=== PATIENT | male | born 1950 | race Caucasian/White ===

== ENCOUNTER 2016-07-15 11:37 | Observation (INO) | payer OTHER ==
[2016-07-15] VITALS (11 sets, daily range): BP systolic 126–192; BP diastolic 58–90; PULSE 64–75; RESP 18–21; TEMP 97.9–98.4; O2SAT 98–100
[~2016-07-15] VITALS: Ht 167.6 cm; Wt 68.0 kg
[2016-07-15 12:40] LABS: AUTOMATED NEUTROPHIL # 6.9 TH/MM3 (1.8-7.7); BASOPHIL % 0.3 % (0.0-2.0); EOSINOPHIL % 0.2 % (0.0-4.0); HEMATOCRIT 39.4 % (39.0-51.0); HEMO FLAGS DIFF FINAL; LYMPH % 12.9 % (9.0-44.0); LYMPHOCYTE # 1.1 TH/MM3 (1.0-4.8); MEAN CELL VOLUME 92.3 FL (80.0-100.0); MEAN CORPUSCULAR HEMOGLOBIN 31.6 PG (27.0-34.0); MEAN CORPUSCULAR HGB CONC 34.2 % (32.0-36.0); MONO % 7.3 % (0.0-8.0); NEUT % 79.3 % (16.0-70.0); PLATELET COUNT 207 TH/MM3 (150-450); RED BLOOD COUNT 4.26 MIL/MM3 (4.50-5.90); RED CELL DISTRIBUTION WIDTH 13.8 % (11.6-17.2); WHITE BLOOD COUNT 8.7 TH/MM3 (4.0-11.0)
--- NOTE | 2016-07-15 12:46 | RADRPT ---
EXAM DATE/TIME: 07/15/2016 12:31 [facility] COMPARISON: No previous studies available for comparison. INDICATIONS : Chest Pain MEDICAL HISTORY : None. SURGICAL HISTORY : None. ENCOUNTER: Initial ACUITY: 1 day PAIN SCORE: 0/10 LOCATION: Bilateral chest FINDINGS: A single view of the chest demonstrates the lungs to be symmetrically aerated without evidence of mas s, infiltrate or effusion. The cardiomediastinal contours are unremarkable. Osseous structures are intact. CONCLUSION: No acute disease. Mohan Duong MD on July 15, 2016 at 12:44 Board Certified Radiologist. This report was verified electronically.
[2016-07-15] MEDS ORDERED: BENA20TA PO (12:47)
[2016-07-15] MEDS ORDERED: PRAV20TA2 PO (12:47)
[2016-07-15] MEDS ORDERED: HYDR25TA5 PO (12:47)
[2016-07-15 13:07] LABS: ANION GAP 10 MEQ/L (5-15)
[2016-07-15 13:14] LABS: BICARBONATE 25.6 MEQ/L (21.0-32.0); BLOOD UREA NITROGEN 35 MG/DL (7-18); CHLORIDE 99 MEQ/L (98-107); CREATINE KINASE 99 U/L (39-308); GLOMERULAR FILTRATION RATE 53 ML/MIN (>89); MAGNESIUM 1.8 MG/DL (1.5-2.5); POTASSIUM 4.2 MEQ/L (3.5-5.1); SODIUM (NA) 135 MEQ/L (136-145)
--- NOTE | 2016-07-15 13:37 | PD ---
HPI Chief Complaint: Syncope/Near-Syncope Time Seen by Provider: 12:01 Travel History International Travel<30 days: No Contact w/Intl Traveler<30days: No Traveled to known affect area: No History of Present Illness HPI Patient is a 66-year-old male who presents the emergency department after syncopal episode. Patient states that he has a history of a right bundle branch block and previous stent to the left circumflex over a decade ago. Patient has been well in the interim and has not had any provocative testing. Patient was sitting in a parked car running errands when he became cool, pale, diaphoretic, nauseous and had a syncopal episode. Patient was by himself, unwitnessed, unclear how long this lasted. When patient awoke he still felt nauseous and had another wave but no syncope. Patient drove himself home, was unable to get out of the car and EMS was called responding to patient. Stable in route. Patient denies having any chest pain, shortness of breath or recollection of palpitations. He has never had any history of syncopal episodes. [facility] Past Medical History Heart Rhythm Problems: Yes (RBBB) Hypertension: Yes Myocardial Infarction: Yes (one) ?: Not Past Surgical History Cardiac Surgery: Yes Coronary Stent: Yes (one-circumflex) Social History Alcohol Use: Yes (occassional) Tobacco Use: No Substance Use: No Allergies-Medications (Allergen,Severity, Reaction): Coded Allergies: No Known Allergies (Unverified , 07/15/16) Reported Meds & Prescriptions Reported Meds & Active Scripts Active Reported Pravastatin 20 Mg Tab 20 Mg PO DAILY Hydrochlorothiazide 25 Mg Tab 20 Mg PO DAILY Benazepril (Benazepril HCl) 20 Mg Tab 20 Mg PO DAILY Review of Systems Except as stated in HPI: all other systems reviewed are Neg Physical Exam Narrative GENERAL: Well-appearing male in no acute distress SKIN: Warm and dry. HEAD: Normocephalic. EYES: No scleral icterus. No injection or drainage. ENT: Mucous membranes pink and moist. NECK: Supple CARDIOVASCULAR: Regular rate and rhythm. No murmur appreciated. RESPIRATORY: No accessory muscle use. Clear to auscultation. Breath sounds equal bilaterally. GASTROINTESTINAL: Abdomen soft, non-tender, nondistended. Hepatic and splenic margins not palpable. MUSCULOSKELETAL: No obvious deformities. No edema. NEUROLOGICAL: Awake and alert. Motor grossly within normal limits. Normal speech. PSYCHIATRIC: Appropriate mood and affect; insight and judgment normal. Data Data Last Documented VS Vital Signs Date Time Temp Pulse Resp B/P Pulse Ox O2 Delivery O2 Flow Rate FiO2 07/15/16 13:30 64 18 166/79 99 Room Air 07/15/16 12:13 97.9 Orders Electrocardiogram (07/15/16 ) Basic Metabolic Panel (Bmp) (07/15/16 12:09) Ckmb (Isoenzyme) Profile (07/15/16 12:09) Complete Blood Count With Diff (07/15/16 12:09) Magnesium (Mg) (07/15/16 12:09) Prothrombin Time / Inr (Pt) (07/15/16 12:09) Act Partial Throm Time (Ptt) (07/15/16 12:09) Troponin I (07/15/16 12:09) Chest, Single Ap (07/15/16 12:09) Ecg Monitoring (07/15/16 12:09) Bilateral Bp Monitoring (07/15/16 12:09) Iv Access Insert/Monitor (07/15/16 12:09) Oximetry (07/15/16 12:09) Electrocardiogram (07/15/16 12:09) Labs Laboratory Tests Test 07/15/16 12:15 White Blood Count 8.7 TH/MM3 Red Blood Count 4.26 MIL/MM3 Hemoglobin 13.5 GM/DL Hematocrit 39.4 % Mean Corpuscular Volume 92.3 FL Mean Corpuscular Hemoglobin 31.6 PG Mean Corpuscular Hemoglobin 34.2 % Concent Red Cell Distribution Width 13.8 % Platelet Count 207 TH/MM3 Mean Platelet Volume 8.4 FL Neutrophils (%) (Auto) 79.3 % Lymphocytes (%) (Auto) 12.9 % Monocytes (%) (Auto) 7.3 % Eosinophils (%) (Auto) 0.2 % Basophils (%) (Auto) 0.3 % Neutrophils # (Auto) 6.9 TH/MM3 Lymphocytes # (Auto) 1.1 TH/MM3 Monocytes # (Auto) 0.6 TH/MM3 Eosinophils # (Auto) 0.0 TH/MM3 Basophils # (Auto) 0.0 TH/MM3 CBC Comment DIFF FINAL Differential Comment Sodium Level 135 MEQ/L Potassium Level 4.2 MEQ/L Chloride Level 99 MEQ/L Carbon Dioxide Level 25.6 MEQ/L Anion Gap 10 MEQ/L Blood Urea Nitrogen 35 MG/DL Creatinine 1.35 MG/DL Estimat Glomerular Filtration 53 ML/MIN Rate Random Glucose 132 MG/DL Calcium Level 9.6 MG/DL Magnesium Level 1.8 MG/DL Total Creatine Kinase 99 U/L Troponin I LESS THAN 0.02 NG/ML MDM Medical Decision Making Medical Screen Exam Complete: Yes Emergency Medical Condition: Yes Medical Record Reviewed: Yes Differential Diagnosis 66-year-old male with history of right bundle branch block, previous stent to the left circumflex over a decade ago here with syncopal episode. Differential includes arrhythmia, electrolyte abnormality, ACS, symptomatic anemia, vasovagal. Patient does not have any risk factors or recent travel to suggest PE. Narrative Course Patient placed on monitor, IV established and blood obtained. A twelve-lead EKG shows sinus rhythm with incomplete right bundle branch block, interventricular conduction delay. No acute abnormalities. An EKG was repeated in approximately 15 minutes without any interval changes. Patient is symptom-free at this time. He, BMP, magnesium, CK-MB, troponin, coags obtained and notable only for BUN 35, creatinine 1.35. I do not have baseline renal function on file with which to compare. Given patient's age she will be admitted for further syncope workup, telemetry. Attempt to get records and previous EKG from [facility], but they're electronic medical record does not go back over a decade. Diagnosis Primary Impression: Syncope Qualified Code: R55 - Syncope, unspecified syncope type Admitting Information Admitting Physician Requests: Angie Retana MD Jul 15, 2016 13:37
[2016-07-15 14:05] LABS: APTT (PATIENT) 19.6 SEC (24.3-30.1); PROTHROMBIN TIME - PATIENT 10.7 SEC (9.8-11.6)
[2016-07-15] MEDS ORDERED: SODIUM CHLORIDE 0.9% FLUSH 5 ML FLUSH IV PRN (17:45)
[2016-07-15] MEDS: SODIUM CHLOR 0.9% 1000 ML INJ 1,000 ML IV SCH ×2 (18:00→22:51)
--- NOTE | 2016-07-15 18:39 | HHI.HP ---
[facility] Service [facility] Primary Care Physician Volodymyr Fragoso M.D. Admission Diagnosis syncope Diagnoses: Chief Complaint: Syncopal episode Travel History International Travel<30 Days: No Contact w/Intl Traveler <30 Da: No Traveled to Known Affected Are: No History of Present Illness Patient is a 66-year-old male with known history of hypertension, CAD status post SC in 2002 with stenting of the left circumflex, who this afternoon while patient was pulling into a parking lot suddenly experienced diaphoresis, nausea followed by a syncopal episode. 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 He was able to drive himself home and when the saw him he was ashen looking and shaky. EMS was called and patient was brought in. Patient states that he felt similar to this when he had the acute coronary attack in 2002 but this time he did not experience any chest pain at all. Patient states very healthy lifestyle no recent fever or chest pain shortness of breath. Denies any palpitations, denies any orthopnea. Denies any leg swelling. Denies any recent travel. Denies any previous episodes of syncope or near syncopal episode. Patient admitted for further evaluation and management. Review of Systems Constitutional: DENIES: Fever, Weight loss, Chills, Change in appetite Eyes: DENIES: Blurred vision, Double Vision Ears, nose, mouth, throat: DENIES: Tinnitus, Ear Pain, Epistaxis, Odynophagia Respiratory: DENIES: Cough, Hemoptysis, Sputum production, Shortness of breath Cardiovascular: DENIES: Chest pain, Palpitations, Dyspnea on Exertion, Lower Extremity Edema, Orthopnea Gastrointestinal: DENIES: Black stools, Bloody stools, Difficulty Swallowing, Anorexia Genitourinary: DENIES: Urgency, Hematuria, Penile Discharge Musculoskeletal: DENIES: Joint pain, Stiffness Integumentary: DENIES: Pruritus Hematologic/lymphatic: DENIES: Bruising Immunologic/allergic: DENIES: Urticaria Neurologic: DENIES: Headache, Speech Problems, Tremor Psychiatric: DENIES: Suicidal Ideation, Homicidal Ideation Past Family Social History Past Medical History Hypertension Coronary artery disease status post SC in 2003 status post stent of the left circumflex in [facility] Past Surgical History None Reported Medications Pravastatin 20 mg at bedtime Hydrochlorothiazide 25 mg daily Been as appropriate 20 mg daily Patient takes 2-3 daily every morning for his right ankle ruptured tendons. Allergies: Coded Allergies: No Known Allergies (Unverified , 07/15/16) Family History Positive history of heart disease Social History Nonsmoker Daily wine or cocktail in the evening Denies any substance polysubstance abuse works as a [employer] Physical Exam Vital Signs Vital Signs Date Time Temp Pulse Resp B/P Pulse Ox O2 Delivery O2 Flow Rate FiO2 07/15/16 16:56 67 19 146/74 99 07/15/16 15:15 78 18 160/58 99 07/15/16 14:08 66 20 161/89 71 162/74 07/15/16 14:07 75 20 153/79 100 Room Air 07/15/16 13:30 64 18 166/79 99 Room Air 07/15/16 12:49 64 20 177/81 98 Room Air 07/15/16 12:18 65 18 192/90 100 Room Air 185/86 07/15/16 12:13 97.9 68 18 185/87 100 Room Air 07/15/16 12:00 68 20 98 Room Air 07/15/16 12:00 97.9 67 18 183/78 100 Room Air 07/15/16 11:45 97.9 66 20 183/87 100 Physical Exam GENERAL: This is a well-nourished, well-developed patient, in no apparent distress. SKIN: Some skin lesions/ rashes patient followed by a formulator compounder plan for biopsy HEAD: Atraumatic. Normocephalic. No temporal or scalp tenderness. EYES: Pupils equal round and reactive. Extraocular motions intact. No scleral icterus. No injection or drainage. ENT: Nose without bleeding, Throat without erythema, tonsillar hypertrophy or exudate. Uvula midline. Airway patent. NECK: Trachea midline. No JVD or lymphadenopathy. Supple, nontender, no meningeal signs. No carotid bruit CARDIOVASCULAR: Regular rate and rhythm without murmurs, gallops, or rubs. RESPIRATORY: Clear to auscultation. Breath sounds equal bilaterally. No wheezes , rales, or rhonchi. GASTROINTESTINAL: Abdomen soft, non-tender, nondistended. . No guarding. MUSCULOSKELETAL: Extremities without clubbing, cyanosis, or edema. No joint tenderness, effusion, or edema noted. No calf tenderness. Negative Homans sign bilaterally. NEUROLOGICAL: Awake and alert. Cranial nerves II through XII intact. Motor and sensory grossly within normal limits. Five out of 5 muscle strength in all muscle groups. Normal speech. Laboratory Laboratory Tests Test 07/15/16 07/15/16 12:15 13:20 White Blood Count 8.7 Red Blood Count 4.26 Hemoglobin 13.5 Hematocrit 39.4 Mean Corpuscular Volume 92.3 Mean Corpuscular Hemoglobin 31.6 Mean Corpuscular Hemoglobin 34.2 Concent Red Cell Distribution Width 13.8 Platelet Count 207 Mean Platelet Volume 8.4 Neutrophils (%) (Auto) 79.3 Lymphocytes (%) (Auto) 12.9 Monocytes (%) (Auto) 7.3 Eosinophils (%) (Auto) 0.2 Basophils (%) (Auto) 0.3 Neutrophils # (Auto) 6.9 Lymphocytes # (Auto) 1.1 Monocytes # (Auto) 0.6 Eosinophils # (Auto) 0.0 Basophils # (Auto) 0.0 CBC Comment DIFF FINAL Differential Comment Sodium Level 135 Potassium Level 4.2 Chloride Level 99 Carbon Dioxide Level 25.6 Anion Gap 10 Blood Urea Nitrogen 35 Creatinine 1.35 Estimat Glomerular Filtration 53 Rate Random Glucose 132 Calcium Level 9.6 Magnesium Level 1.8 Total Creatine Kinase 99 Troponin I LESS THAN 0.02 Prothrombin Time 10.7 Prothromb Time International 1.0 Ratio Activated Partial 19.6 Thromboplast Time Result Diagram: 07/15/16 1215 07/15/16 1215 Imaging Last Impressions Chest X-Ray 07/15/16 1209 Signed Impressions: Service Date/Time: Friday, July 15, 2016 12:31 - CONCLUSION: No acute disease. Mohan Duong MD Assessment and Plan Assessment and Plan Patient is a 66-year-old male with known history of CAD presenting with Syncopal episode- questionable vasovagal. EKG with ? Brugada pattern History of CAD status post stent of the left circumflex 2002 History of Hypertension- SBP elevated on initial presentation Get carotid ultrasound, echo, Holter monitoring. Place patient on telemetry. Orthostatics done - negative Check troponins.another set now and in am 12-lead EKG shows sinus rhythm with right bundle branch block with ? Brugada pattern. check EEG Unclear why patient is not on aspirin. Continue on benazepril 20 mg daily Continue pravastatin 20 mg at bedtime hydrochlorothiazide 25 mg by mouth daily Cardiology consult. ? need for EPS. Vasotec IV prn for elevated BPs Acute kidney insufficiency. Patient denies any diarrhea or GI symptoms nausea vomiting. We'll start patient on gentle hydration Discussed with patient and at bedside. Lovenox for DVT prophylaxis ( no history of bleeding tendencies) Jef Arriaga MD Jul 15, 2016 18:39
[2016-07-15] MEDS ORDERED: ENALAPRILAT 1.25 MG/ML VIAL IV PUSH PRN (19:00)
[2016-07-15 19:21] LABS: BICARBONATE 29.3 MEQ/L (21.0-32.0); INDIRECT BILIRUBIN 0.9 MG/DL (0.0-0.8); POTASSIUM 4.2 MEQ/L (3.5-5.1); TOTAL BILIRUBIN ADULT 1.1 MG/DL (0.2-1.0)
[2016-07-15] MEDS: SODIUM CHLORIDE 0.9% FLUSH 5 ML FLUSH IV SCH (21:00)
--- NOTE | 2016-07-15 22:13 | RADRPT ---
EXAM DATE/TIME: 07/15/2016 21:13 [facility] COMPARISON: No previous studies available for comparison. INDICATIONS : Syncope. MEDICAL HISTORY : Hypertension. Myocardial infarction. SURGICAL HISTORY : Coronary stent. ENCOUNTER: Initial ACUITY: 1 day PAIN SCORE: 0/10 LOCATION: Bilateral neck PEAK SYSTOLIC VELOCITIES (cm/sec): ICA/CCA RATIO: Right: 0.8 Left: 0.8 ICA: Right: 127 Left: 100 CCA: Right: 94 Left: 118 ECA: Right: 133 Left: 125 VERTEBRAL: Right: 39 antegrade Left: 57 antegrade Elevated flow velocities and ICA/CCA ratios have been found to correlate with increased degrees of vessel stenosis, calculated as percentage of diameter relative to a normal segment of distal ICA/CCA FINDINGS: RIGHT CAROTID: Mild atherosclerotic plaquing at the bifurcation. No significant stenosis is visualized. The wavefor ms are within normal limits. LEFT CAROTID: Mild atherosclerotic plaquing at the bifurcation. No significant stenosis is visualized. The wavefor ms are within normal limits. VERTEBRAL ARTERIES: Antegrade flow is seen in both vertebral arteries. MISCELLANEOUS: None. CONCLUSION: Mild atherosclerotic plaquing at both carotid bifurcations. No focal high-grade or hemodynamically si gnificant stenosis. Balta Hernandez MD on July 15, 2016 at 22:11 Board Certified Radiologist. This report was verified electronically.
[2016-07-15] MEDS: ENOXAPARIN SODIUM 30 MG/0.3 ML SYRINGE SQ SCH (22:52)
[2016-07-16] VITALS (9 sets, daily range): BP systolic 128–166; BP diastolic 59–91; PULSE 57–78; RESP 18–20; TEMP 98–98.8; O2SAT 97–98
[2016-07-16 05:49] LABS: AMPHETAMINE, URINE NEG (NEG); BARBITURATES, URINE NEG (NEG); COCAINE, URINE NEG (NEG)
[2016-07-16 07:44] LABS: BICARBONATE 26.7 MEQ/L (21.0-32.0); HDL CHOLESTEROL 80.3 MG/DL (40.0-60.0); POTASSIUM 4.3 MEQ/L (3.5-5.1)
--- NOTE | 2016-07-16 08:26 | HHI.PR ---
Subjective Remarks overnight - sinus on telemetry no complains patient took his own home meds without telling the nurse Objective Vitals Vital Signs Date Time Temp Pulse Resp B/P Pulse Ox O2 Delivery O2 Flow Rate FiO2 07/16/16 07:50 98.3 67 20 155/74 97 156/80 166/84 07/16/16 04:40 98.8 78 18 142/78 98 152/88 157/91 07/16/16 02:01 57 07/16/16 01:23 98.7 68 18 129/59 98 07/15/16 20:31 98.4 73 21 126/64 98 07/15/16 16:56 67 19 146/74 99 07/15/16 15:15 78 18 160/58 99 07/15/16 14:08 66 20 161/89 71 162/74 07/15/16 14:07 75 20 153/79 100 Room Air 07/15/16 13:30 64 18 166/79 99 Room Air 07/15/16 12:49 64 20 177/81 98 Room Air 07/15/16 12:18 65 18 192/90 100 Room Air 185/86 07/15/16 12:13 97.9 68 18 185/87 100 Room Air 07/15/16 12:00 68 20 98 Room Air 07/15/16 12:00 97.9 67 18 183/78 100 Room Air 07/15/16 11:45 97.9 66 20 183/87 100 Result Diagram: 07/15/16 1215 07/16/16 0606 Imaging Last Impressions Chest X-Ray 07/15/16 1209 Signed Impressions: Service Date/Time: Friday, July 15, 2016 12:31 - CONCLUSION: No acute disease. Mohan Duong MD Carotid Artery Ultrasound 07/15/16 0000 Signed Impressions: Service Date/Time: Friday, July 15, 2016 21:13 - CONCLUSION: Mild atherosclerotic plaquing at both carotid bifurcations. No focal high-grade or hemodynamically significant stenosis. Balta Hernandez MD Objective Remarks awake and alert Oriented x 3 ,NAD, speech clear anicteric no bruit lungs clear regula rhyhtm abdomen soft, nontender extremities no edema neurologi exam- unremarkable A/P Assessment and Plan Patient is a 66-year-old male with known history of CAD presenting with Syncopal episode- questionable vasovagal. EKG with ? Brugada pattern History of CAD status post stent of the left circumflex 2002 History of Hypertension- work up in progress - looks well neurologically Get carotid ultrasound, echo, Holter monitoring. telemetry- in SR . Orthostatics done - negative troponins negative check EEG Unclear why patient is not on aspirin. Continue on benazepril 20 mg daily Continue pravastatin 20 mg at bedtime hydrochlorothiazide 25 mg by mouth daily- hold with mild RI Cardiology consult. ? need for EP study Vasotec IV prn for elevated BPs ADD Calcium channel tiff- amlodipine- 2.5 mg po daily- HOLD- patient took his home meds on his own without informing nurses Acute kidney insufficiency. renal functions improved gentle hydration DC HCTZ- patient took home meds on his own Discussed with patient and at bedside. Lovenox for DVT prophylaxis ( no history of bleeding tendencies) Jef Arriaga MD Jul 16, 2016 08:26
[2016-07-16] MEDS ORDERED: PILL SPLITTER OTHER PRN (08:45)
[2016-07-16] MEDS: SODIUM CHLORIDE 0.9% FLUSH 5 ML FLUSH IV SCH ×2 (09:00→20:29)
[2016-07-16] MEDS: PRAVASTATIN SOD 20 MG TAB PO SCH (09:00)
[2016-07-16] MEDS ORDERED: amLODIPine BESYLATE 5 MG TAB PO SCH (09:00)
[2016-07-16] MEDS: LISINOPRIL 20 MG TAB PO SCH (09:00)
[2016-07-16] MEDS ORDERED: HYDROCHLOROTHIAZIDE 25 MG TAB PO SCH ×2 (09:00)
--- NOTE | 2016-07-16 17:58 | EC ---
Study Study Date:07/16/2016 STUDY CONCLUSIONS SUMMARY - Left ventricle: The cavity size was normal. Wall thickness was normal. Systolic function was normal. The estimated ejection fraction was 65%. Wall motion was normal; there were no regional wall motion abnormalities. - Mitral valve: Mildly calcified annulus. If LV function is below 40, please consider prescribing an ACEI or ARB or document rationale for non-use. PROCEDURE DATA STUDY STATUS: Elective. Procedure: Transthoracic echocardiography. Image quality was good. Scanning was performed from the parasternal, apical, and subcostal acoustic windows. Study completion: The patient tolerated the procedure well. Transthoracic echocardiography. M-mode, complete 2D, complete spectral Doppler, and color Doppler. Height: Height: 66in. Weight: Weight: 148.7lb. Body mass index: BMI: 24kg/m^2. Body surface area: BSA: 1.76m^2. Patient status: Inpatient. CARDIAC ANATOMY LEFT VENTRICLE: The cavity size was normal. Wall thickness was normal. Systolic function was normal. The estimated ejection fraction was 65%. Wall motion was normal; there were no regional wall motion abnormalities. AORTIC VALVE: Trileaflet; mildly thickened leaflets. Doppler: Transvalvular velocity was within the normal range. There was no stenosis. No regurgitation. Valve area: 2.2cm^2(VTI). Indexed valve area: 1.25cm^2/m^2 (VTI). Valve area: 2.03cm^2 (Vmax). Indexed valve area: 1.15cm^2/m^2 (Vmax). Mean gradient: 7mm Hg (S). Peak gradient: 11mm Hg (S). AORTA: Aortic root: The aortic root was normal in size. MITRAL VALVE: Mildly calcified annulus. Doppler: Transvalvular velocity was within the normal range. There was no evidence for stenosis. Trace regurgitation. Peak gradient: 4mm Hg (D). LEFT ATRIUM: The atrium was normal in size. RIGHT VENTRICLE: The cavity size was normal. Wall thickness was normal. PULMONIC VALVE: Doppler: Transvalvular velocity was within the normal range. There was no evidence for stenosis. No regurgitation. TRICUSPID VALVE: Structurally normal valve. Doppler: Transvalvular velocity was within the normal range. Trace regurgitation. PULMONARY ARTERY: The main pulmonary artery was normal-sized. Systolic pressure was within the normal range. RIGHT ATRIUM: The atrium was normal in size. PERICARDIUM: There was no pericardial effusion. SYSTEMIC VEINS: Inferior vena cava: The vessel was normal in size. Patient weight: 148.7lb _Ejection fraction:_ 65-75% _Fractional shortening:_ 32% up to 5Kg 5-11.5Kg 11.6-22.9Kg 23-45Kg 45-57Kg Aortic Root 7-13 <17 13-22 17-27 17-27 LA diam 6-13 <23 24-38 33-47 37-40 RVID 10-17 7-15 7-15 7-18 8-17 LVIDd 12-22 <32 24-38 33-47 37-40 LVPW 2-4 3-6 5-7 6-8 7-8 IVS 2-4 3-6 5-7 6-8 7-8 BASIC MEASUREMENTS ADULT NORMAL Left ventricle LV internal dimension, ED, chordal 48 mm 43-52 level, PLAX LV internal dimension, ES, chordal 33.4 mm 23-38 level, PLAX Fractional shortening, chordal level, 30 % >29 PLAX LV posterior wall thickness, ED 10.5 mm IVS/LVPW ratio, ED 1.09 <1.3 Ventricular septum Septal thickness, ED 11.4 mm Aortic valve Leaflet separation *13 mm 15-26 Aorta Root diameter, ED 33 mm Left atrium Anterior-posterior dimension 36 mm Anterior-posterior dimension index 2.05 cm/m^2 <2.2 BASIC MEASUREMENTS ADULT NORMAL Aortic valve Leaflet separation *13 mm 15-26 DOPPLER MEASUREMENTS ADULT NORMAL Aortic valve Peak velocity, S 169 cm/s Mean velocity, S 124 cm/s VTI, S 31.7 cm Mean gradient, S 7 mm Hg Peak gradient, S 11 mm Hg Valve area, VTI 2.2 cm^2 Valve area index, VTI 1.25 cm^2/m^2 Valve area, Vmax 2.03 cm^2 Valve area index, Vmax 1.15 cm^2/m^2 Mitral valve Peak E-wave velocity 99.8 cm/s Peak A-wave velocity 117 cm/s Deceleration time 204 ms 150-230 Peak gradient, D 4 mm Hg Peak E/A ratio 0.9 Tricuspid valve Regurgitant peak velocity 200 cm/s Peak RV-RA gradient, S 16 mm Hg Maximal regurgitant velocity 200 cm/s Pulmonic valve Peak velocity, S 102 cm/s LEGEND: Mean values are shown as u=mean value. Asterisk (*) wynn values outside specified normal range. Amended Margarito Figueroa [id number]
--- NOTE | 2016-07-16 20:09 | EKG ---
Date Performed: 07/15/2016 Time Performed: 18:24:55 PTAGE: 66 years EKG: Sinus rhythm INTRAVENTRICULAR CONDUCTION DELAY OLD LATERAL MYOCARDIAL INFARCTION LEFT AXIS ABNORMAL ECG PREVIOUS TRACING : 07/15/2016 12.12 Compared to prior tracing no significant change DOCTOR: Margarito Figueroa Interpretating Date/Time 07/16/2016 20:07:51
--- NOTE | 2016-07-16 20:26 | EKG ---
Date Performed: 07/15/2016 Time Performed: 12:12:26 PTAGE: 66 years EKG: Sinus rhythm WITH OCCASIONAL VENTRICULAR PREMATURE COMPLEXES INTRAVENTRICULAR CONDUCTION DELAY LATERAL MYOCARDIAL INFARCTION ABNORMAL ECG Compared to prior tracing no significant change DOCTOR: Margarito Figueroa Interpretating Date/Time 07/16/2016 20:25:14
--- NOTE | 2016-07-16 20:29 | EKG ---
Date Performed: 07/15/2016 Time Performed: 11:54:41 PTAGE: 66 years EKG: Sinus rhythm WITH OCCASIONAL VENTRICULAR PREMATURE COMPLEXES MARKED LEFT AXIS DEVIATION INTRAVENTRICULAR CONDUCTI ON DELAY LATERAL MYOCARDIAL INFARCTION ABNORMAL ECG NO PREVIOUS TRACING DOCTOR: Margarito Figueroa Interpretating Date/Time 07/16/2016 20:27:43
[2016-07-16] MEDS: ENOXAPARIN SODIUM 30 MG/0.3 ML SYRINGE SQ SCH (20:30)
--- NOTE | 2016-07-16 21:26 | MB ---
cc: GUIDO COYNE DO DATE OF CONSULTATION: 07/16/2016 REASON FOR CONSULTATION: Syncope. HISTORY OF PRESENT ILLNESS Yuniel Arenas is a pleasant 66 year-old male who originally presented to [facility] on July 15, 2016, due to a syncopal episode. He was driving to the liquor store and pulled into the parking lot and stopped his car. He leaned down to get something on the ground and when he came back up he felt a nauseousness come over him. At that time he ended up syncopizing. He woke up and he was slightly diaphoretic and so he came home. On arrival his told him that he looked pale and shaky, and so EMS was called. The patient was unsure how long he was out but his told him that he was only gone for a short period of time. When the nauseousness came on he did get slightly groggy but denies chest pain, shortness of breath or palpitations at that time. He has been feeling relatively well lately and the only thing affecting him is stressors within his including marital issues. He has had two other episodes of syncope over the past four years. One episode he was driving around with his cat and he was worried about getting his cat to a certain place. He finally got the cat to where it needed to be and then had an episode similar to his initial presenting syndrome. The other episode he was at a concert in [place]. The people in front of him were standing up and he got into a verbal altercation with them. Afterwards he was very stressed out about it and was driving around, and when he arrived to where he was at, he ended up having a syncopal episode. Overall he lives a healthy lifestyle. He has never used tobacco or drugs. He does drink two to three drinks a day. He exercises heavily daily including 10 to 12 miles on a bike most days. PAST MEDICAL HISTORY: 1. Hypertension. 2. Coronary artery disease. PAST SURGICAL HISTORY: 1. Cardiac catheterization (2002) for NC while he was in [facility]. 2. Status post of the left circumflex. ALLERGIES: NO KNOWN DRUG ALLERGIES. MEDICATIONS: 1. Benazepril 20 milligrams daily. 2. Pravastatin 20 milligrams daily. 3. Hydrochlorothiazide 25 milligrams daily. FAMILY HISTORY: He does have a history of heart disease within the family but denies premature coronary artery disease or sudden cardiac within the family. SOCIAL HISTORY: Denies tobacco or drug abuse, previously worked as a sleep technologist. He does drink 2 to 3 alcoholic beverages in the evening usually consisting of wine or hard alcohol, but does not binge drink in general. REVIEW OF SYSTEMS: 14-systems were reviewed including osteopathic in the history and physical and above, pertinent positives and negatives above otherwise negative. PHYSICAL EXAMINATION Vital signs: Temperature 98.4, heart rate 73, blood pressure 133/71, respirations 20, pulse ox 98% on room air. Orthostatics supine 155/74, sitting 156/80, standing 166/84. In general the patient appears well in no acute distress, alert, awake and oriented x3. HEENT: Extraocular muscles intact. Mucous membranes moist. Neck: Supple. No JVD at 45 degrees. No carotid bruits heard bilaterally. Carotid upstroke is brisk in nature. Heart: Regular rate and rhythm. Positive first and second heart sounds with a 1/6 crescendo-decrescendo murmur early peaking to the right sternal border. Lungs: Clear to auscultation bilaterally. No wheezes, rales or rhonchi. Abdomen: Soft, nontender, nondistended, no organomegaly noted. Extremities: Show no clubbing, cyanosis or edema. Femoral and distal pulses intact bilaterally. Neurologically: No focal deficits. Skin: Warm, dry and intact. Osteopathic: No kyphoscoliosis, lordosis or paraspinal tender points. LABORATORY FINDINGS Hemoglobin 13.5, hematocrit 39.4, platelets 207. Potassium 4.3, BUN 32, creatinine of 1.35 decreasing to 1.24. Troponin negative x3. Total cholesterol 161, LDL 55, HDL 80.3, triglycerides 128, TSH 4.23. Electrocardiogram (July 15, 2016 at 18:24) sinus rhythm, right bundle branch block, left anterior fascicular block, old lateral myocardial infarction. IMPRESSION 1. Syncopal episode of unknown cause. 2. Coronary artery disease with a history of myocardial infarction (2002 at [facility]) with stenting of left circumflex. 3. History of hypertension. 4. Acute kidney injury. RECOMMENDATIONS 1. Etiology of syncope is difficult to determine at this time. It may be vasovagal in nature versus the other consideration would be with his fascicular block on his EKG. 2. Carotid ultrasound shows no significant stenosis. 3. There is a question of possible Brugada type EKG on one of the three EKGs done. Reviewing the electrocardiogram I do not feel that this represents a Brugada type pattern. 4. Will check a 2-D echocardiogram to look at his overall left ventricular function, cardiac structure, and possible valvuopathy. 5. Will watch him on telemetry overnight. 6. If no arrhythmias are noted, as well as echo showing normal ejection fraction, we will plan on having him follow up with EP in the near future for consideration of an EP study due to his biventricular block. 7. As far as his previous coronary artery disease I am unsure why he is not on aspirin 81 milligrams daily. This will be further discussed with him. Thank you for allowing me to see Yuniel Arenas. If there are any questions, please do not hesitate to call. Guido Coyne DO VGP/HEATHER /8:12 PM /9:00 PM
[2016-07-17 00:23] VITALS: BP 193/87; PULSE 72; RESP 18; TEMP 98.8; O2SAT 98
[2016-07-17 01:15] VITALS: BP 157/87
[2016-07-17 07:13] LABS: BICARBONATE 26.7 MEQ/L (21.0-32.0); POTASSIUM 4.2 MEQ/L (3.5-5.1)
[2016-07-17] MEDS: SODIUM CHLOR 0.9% 1000 ML INJ 1,000 ML IV SCH (07:53)
[2016-07-17 08:07] VITALS: BP 182/88; PULSE 68; RESP 18; TEMP 97.7; O2SAT 96
[2016-07-17 08:12] VITALS: PULSE 69
[2016-07-17] MEDS: LISINOPRIL 20 MG TAB PO SCH (08:19)
[2016-07-17] MEDS: PRAVASTATIN SOD 20 MG TAB PO SCH (08:19)
[2016-07-17] MEDS: SODIUM CHLORIDE 0.9% FLUSH 5 ML FLUSH IV SCH (08:20)
[2016-07-17 10:45] VITALS: BP 128/75; PULSE 84
[2016-07-17] MEDS ORDERED: ASPIRIN 81 MG CHEW TAB CHEW SCH (10:45)
[2016-07-17] MEDS ORDERED: amLODIPine BESYLATE 5 MG TAB PO SCH (10:45)
--- NOTE | 2016-07-17 11:21 | HHI.PR ---
Subjective Remarks doing well long conversation with patient has a type A personality, very impatient Objective Vitals Vital Signs Date Time Temp Pulse Resp B/P Pulse Ox O2 Delivery O2 Flow Rate FiO2 07/17/16 08:12 69 07/17/16 08:07 97.7 68 18 182/88 96 07/17/16 01:15 157/87 07/17/16 00:23 98.8 72 18 193/87 98 07/16/16 20:17 98.0 61 18 135/66 98 07/16/16 20:10 75 07/16/16 16:04 98.4 73 20 133/71 98 07/16/16 11:48 98.4 73 19 128/70 98 I/O 07/16/16 07/16/16 07/16/16 07/17/16 07/17/16 07/17/16 07:00 15:00 23:00 07:00 15:00 23:00 Intake Total 800 ml 500 ml Balance 800 ml 500 ml Intake Oral 600 ml 500 ml IV Total 200 ml # Voids 5 1 # Bowel Movements 0 Result Diagram: 07/15/16 1215 07/17/16 0615 Objective Remarks awake and alert Oriented x 3 ,NAD, speech clear anicteric no bruit lungs clear regular rhyhtm abdomen soft, nontender extremities no edema neurologi exam- unremarkable A/P Assessment and Plan Patient is a 66-year-old male with known history of CAD presenting with Syncopal episode- likely vasovagal History of CAD status post stent of the left circumflex 2002 History of Hypertension- d/w Dr. José Miguel woody today- and will be set up with theri office- Dr. French for EPstudy Unclear why patient is not on aspirin. Continue on benazepril 20 mg daily Continue pravastatin 20 mg at bedtime hydrochlorothiazide 25 mg by mouth daily- hold with mild RI Acute kidney insufficiency. renal functions improved gentle hydration DC HCTZ- patient took home meds on his own Discussed with patient and at bedside. Lovenox for DVT prophylaxis ( no history of bleeding tendencies) DC home today OP ff up with Kaylene Fragoso Ff up with Cardiology Meds: ASA 81 mg daily Continue JAMES DC HCTZ Advise activity as tolerated heart healthy diet Lifestyle - temper control-- may need psychotherapy- d/w him No strenuous activity FF up with PCP and Cardiology Jef Arriaga MD Jul 17, 2016 11:21
[2016-07-17] MEDS ORDERED: Aspirin Chew CHEW (11:23)
--- NOTE | 2016-07-17 11:25 | PD.CARD.PN ---
Subjective Subjective Remarks No chest pain, no shortness of breath, no palpitations Had an event the night before where he got mad about a situation and blood pressure elevated afterwards No events on telemetry Objective Medications Current Medications Medications (Trade) Dose Ordered Sig/El Route Start Time Stop Time Status Last Admin (NS Flush) 2 ml UNSCH PRN IV 07/15/16 17:45 IV Flush 2 ml 2 ml BID IV 07/15/16 21:00 07/17/16 08:20 (NS 1000 ml Inj) 1,000 ml @ 42 mls/hr [id number] IV 07/15/16 18:00 07/15/16 22:51 (Prinivil) 20 mg DAILY PO 07/16/16 09:00 07/17/16 08:19 (Pravachol) 20 mg DAILY PO 07/16/16 09:00 07/17/16 08:19 (Lovenox Inj) 30 mg Q24H SQ 07/15/16 20:00 07/16/16 20:30 (Vasotec Inj) 1.25 mg Q8H PRN IV PUSH 07/15/16 19:00 (Pill Splitter) 1 ea UNSCH PRN OTHER 07/16/16 08:45 (Aspirin Chew) 81 mg DAILY CHEW 07/17/16 10:45 Vital Signs / I&O Vital Signs Date Time Temp Pulse Resp B/P Pulse Ox O2 Delivery O2 Flow Rate FiO2 07/17/16 10:45 84 128/75 07/17/16 08:12 69 07/17/16 08:07 97.7 68 18 182/88 96 07/17/16 01:15 157/87 07/17/16 00:23 98.8 72 18 193/87 98 07/16/16 20:17 98.0 61 18 135/66 98 07/16/16 20:10 75 07/16/16 16:04 98.4 73 20 133/71 98 07/16/16 11:48 98.4 73 19 128/70 98 I/O 07/16/16 07/16/16 07/16/16 07/17/16 07/17/16 07/17/16 07:00 15:00 23:00 07:00 15:00 23:00 Intake Total 800 ml 500 ml Balance 800 ml 500 ml Intake Oral 600 ml 500 ml IV Total 200 ml # Voids 5 1 # Bowel Movements 0 Physical Exam GENERAL: NAD, AAOx3 SKIN: Warm and dry. HEAD: Atraumatic. Normocephalic. EYES: Pupils equal and round. No scleral icterus. No injection or drainage. ENT: No nasal bleeding or discharge. Mucous membranes pink and moist. NECK: Trachea midline. No JVD. CARDIOVASCULAR: Regular rate and rhythm. RESPIRATORY: No accessory muscle use. Clear to auscultation. Breath sounds equal bilaterally. GASTROINTESTINAL: Abdomen soft, non-tender, nondistended. Hepatic and splenic margins not palpable. MUSCULOSKELETAL: Extremities without clubbing, cyanosis, or edema. No obvious deformities. NEUROLOGICAL: Awake and alert. No obvious cranial nerve deficits. Motor grossly within normal limits. Five out of 5 muscle strength in the arms and legs. Normal speech. PSYCHIATRIC: Appropriate mood and affect; insight and judgment normal. Laboratory Laboratory Tests Test 07/17/16 06:15 Sodium Level 138 MEQ/L Potassium Level 4.2 MEQ/L Chloride Level 103 MEQ/L Carbon Dioxide Level 26.7 MEQ/L Anion Gap 8 MEQ/L Blood Urea Nitrogen 32 MG/DL Creatinine 1.18 MG/DL Estimat Glomerular Filtration 61 ML/MIN Rate Random Glucose 106 MG/DL Calcium Level 9.3 MG/DL Assessment and Plan Problem List: (1) Syncope (2) Block, bifascicular (3) Hypertension Assessment and Plan 1) Syncope, possible vasovagal vs bifascicular block 2) Does not appear to be Brugada type EKG 3) Should be on ASA for history of CAD, would start on ASA 81mg 4) Continue with blood pressure medications 5) Cardiovascularly stable for discharge 6) Follow up with Dr. French on 07/21/16 at 1:30pm for consideration of EP study for bifascicular block, loop for syncope 7) Instructed not to drive due to his syncope even though he does have an aura before the episode Problem Qualifiers (1) Syncope: Qualified Code: R55 - Syncope, unspecified syncope type Guido Valdez DO Jul 17, 2016 11:25
--- NOTE | 2016-07-17 14:15 | HM ---
Date Performed: 07/15/2016 Time Performed: 19:14:00 HOOKUP DATE: 07/15/16 07:14:00 PM Tue ANALYSIS START TIME: 07/15/2016 7:19:00 PM ANALYSIS END TIME: 07/16/2016 5:54:59 PM PATIENT AGE: 66 PATIENT HEIGHT PATIENT WEIGHT DRUG LIST PATIENT DIAGNOSIS: syncope TEST NARRATIVE: The patient's average heart rate was 69 BPM. No episodes of tachycardia wer e noted. No episodes of bradycardia were noted. No pauses exceeding 2.0 seconds were noted. 246 ventricular ectopics, which represented < 1% of the total beat count, were noted. The highest ve ntricular ectopic frequency occurred from 08:00 PM to 09:00 PM Tue. During this time 113 VE(s) occur red. Ventricular ectopics were observed as 234 isolated beat(s) and as 6 couplet(s). No runs were n oted. 6 supraventricular ectopics, which represented < 1% of the total beat count, were noted. T he highest supraventricular ectopic frequency occurred from 11:00 PM to 12:00 AM Wed. During this ti me 2 SVE(s) occurred. No episodes of ST depression (defined as -1.0 mm or more) were noted in arnol nnel 1. No episodes of ST depression (defined as -1.0 mm or more) were noted in channel 2. No episo shannan of ST depression (defined as -1.0 mm or more) were noted in channel 3. NO DIARY MAINTAINED TEST INTERPRETATION: Benign Holter Signed by : Aditya Murrell
== END 2016-07-17 13:16 | disposition home or self-care (01) ==
LOC: NEPE 11:37 → NEDA 13:59 → NEPHCDU 15:27
PROVIDERS: ADMIT Internal Medicine; ATTEND Internal Medicine
DX: R55 Syncope and collapse (principal); I45.10 Unspecified right bundle-branch block; I10 Essential (primary) hypertension; I25.2 Old myocardial infarction; I25.10 Atherosclerotic heart disease of native coronary artery without angina pectoris; N17.9 Acute kidney failure, unspecified; Z95.5 Presence of coronary angioplasty implant and graft; Z79.82 Long term (current) use of aspirin
CPT/HCPCS: 71010; 80048; 80061; 80076; 80307; 82550; 83735; 84443; 84484; 85025; 85610; 85730; 93005; 93225; 93226; 93306; 93880; 99285; G0378; J1650; J7030